=== PATIENT | female | born 1970 | race Caucasian/White ===

== ENCOUNTER 2018-11-21 09:36 | Emergency (ER) | payer OTHER ==
[~2018-11-21] VITALS: Ht 157.5 cm; Wt 88.5 kg
== END 2018-11-21 21:02 | disposition home or self-care (01) ==
LOC: ER 09:36
DX: K80.20 Calculus of gallbladder without cholecystitis without obstruction (principal)

== ENCOUNTER 2020-02-24 13:50 | Emergency (ER) | payer OTHER ==
[~2020-02-24] VITALS: Ht 157.5 cm; Wt 86.2 kg
== END 2020-02-24 19:59 | disposition home or self-care (01) ==
LOC: ER 13:50
DX: I16.0 Hypertensive urgency (principal); G45.8 Other transient cerebral ischemic attacks and related syndromes; F06.4 Anxiety disorder due to known physiological condition; Z20.828 Contact with and (suspected) exposure to other viral communicable diseases